=== PATIENT | male | born 1985 | race Caucasian/White ===

== ENCOUNTER 2017-04-11 12:37 | Emergency (ER) | payer OTHER ==
[~2017-04-11] VITALS: Ht 175.3 cm; Wt 72.0 kg
[2017-04-11 12:42] VITALS: BP 133/73
[2017-04-11] MEDS ORDERED: KEFLEX250 M1 PO (13:01)
--- NOTE | 2017-04-11 13:01 | ED SKIN/ALLERGY COMPLAINT ---
History of Present Illness General Chief Complaint: Skin Rash/ Abcess Stated Complaint: NECK RASH Source: patient, family Exam Limitations: no limitations Vital Signs & Intake/Output Vital Signs & Intake/Output Vital Signs Date Time Temp Pulse Resp B/P B/P Pulse O2 O2 Flow FiO2 Mean Ox Delivery Rate 04/11 1242 97.9 57 16 133/73 98 Room Air Allergies Coded Allergies: No Known Allergies (11/08/16) Reconcile Medications No Known Home Medications Triage Note: PT HAS RASH TO NECK AND THE BACK OF HIS HEAD THAT STARTED 3 DAYS AGO. Triage Nurses Notes Reviewed? yes HPI: 3 days ago patient noticed painful small bumps on the top of his head. This morning he woke up and noticed that he had to swollen areas on the back of his neck. There are no fevers or chills. There is no difficulty breathing or swallowing. There is no pain to the bumps to the back of his neck. There is no pain without palpation to the bumps on his head but there is tenderness when he presses on the area. There is no tenderness outside of the area. With palpation the tenderness is 4 out of 10. Past History Travel History Traveled to [place] past 21 day No Medical History Any Pertinent Medical History? 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 No Review of Systems Review of Systems Constitutional: Reports: no symptoms. EENTM: Reports: see HPI. Respiratory: Reports: no symptoms. Cardiovascular: Reports: no symptoms. GI: Reports: no symptoms. Skin: Reports: see HPI. Immunologic/Allergic: Reports: no symptoms. Physical Exam Physical Exam General Appearance: well developed/nourished, alert, awake, anxious, mild distress Head: SMALL PUTULES TO RIGHT POSTERIOR SCALP Eyes: Bilateral: PERRL, EOMI. Neck: [address] IN RIGHT POSTERIOR CHAIN, NONTENDER, MOVABLE. Respiratory: normal breath sounds, chest non-tender, no respiratory distress, lungs clear Cardiovascular: regular rate/rhythm, normal peripheral pulses Neurologic/Psych: no motor/sensory deficits, awake, alert, oriented x 3, normal gait, normal mood/affect Skin: SEE ABOVE Progress Differential Diagnosis: abscess/cellulitis Plan of Care: ABX Departure Departure Disposition: HOME OR SELF CARE Condition: Stable Clinical Impression Primary Impression: Abscess Secondary Impressions: Lymphadenitis Referrals: PATIENT HAS NO PRIMARY CARE DR (PCP/Family) Additional Instructions: TAKE ANTIBIOTICS PRESCRIBED RETURN IF SYMPTOMS WORSEN OR FOR ANY CONCERNS Departure Forms: Customer Survey General Discharge Information Prescriptions: Current Visit Scripts Cephalexin (Keflex) 1 CAP PO 4 TIMES/DAY #28 CAP
== END 2017-04-11 13:06 ==
LOC: ERH 12:37
DX: L02.91 Cutaneous abscess, unspecified (principal); I88.9 Nonspecific lymphadenitis, unspecified

== ENCOUNTER 2017-04-26 17:22 | Emergency (ER) | payer OTHER ==
[~2017-04-26] VITALS: Ht 175.3 cm; Wt 74.0 kg
[~2017-04-26 17:22] MED LIST: KEFLEX250 M1 PO
--- NOTE | 2017-04-26 18:22 | RADIOLOGY REPORT ---
EXAMINATION: XR CHEST CLINICAL INFORMATION: Right-sided chest pain COMPARISON: None TECHNIQUE: 2 views of the chest were obtained. FINDINGS: No significant abnormality is noted involving the heart, lungs, mediastinum, bony thorax or soft tissues. IMPRESSION: Unremarkable examination.
--- NOTE | 2017-04-26 18:50 | ED DYSPNEA/ASTHMA COMPLAINT ---
History of Present Illness General Chief Complaint: General Adult Stated Complaint: COUGH, RIGHT CHEST PAIN Source: family Exam Limitations: language barrier Vital Signs & Intake/Output Vital Signs & Intake/Output Vital Signs Date Time Temp Pulse Resp B/P B/P Pulse O2 O2 Flow FiO2 Mean Ox Delivery Rate 04/26 1924 97.5 66 20 128/78 98 Room Air 04/26 1846 Room Air 04/26 1742 97.6 67 20 138/75 99 Room Air Allergies Coded Allergies: No Known Allergies (11/08/16) Reconcile Medications Benzonatate (Tessalon Perle) 100 MG CAPSULE 1 CAP PO TID PRN COUGH Cephalexin (Keflex) 250 MG CAPSULE 1 CAP PO 4 TIMES/DAY ABSCESS Codeine Phosphate/Guaifenesi (Cheratussin AC Syrup) 10 MG-100 MG/5 ML LIQUID 10 ML PO QPM PRN COUGH 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 (Medrol) 4 MG TAB.DS.PK 1 DP PO AD inflammation 6 on day 1 then reduce by one tablet daily until gone Triage Note: PT TO ED C/O RIGHT SIDED CHEST PAIN WITH COUGHING. HAD FEVER 2 DAYS AGO AND STATES THE PAIN STARTED AFTER THE FEVER. C/O NON-PRODUCTIVE COUGH. AFEBRILE NOW. PT IS [place] SPEAKING, FRIEND HERE TO TRANSLATE. PT TO EKG BILLIE. Triage Nurses Notes Reviewed? yes Onset: Gradual Duration: constant Timing: recent history Severity: moderate HPI: Patient is a 31-year-old male with an unremarkable past medical history since emergent with a 2 day history of tactile fevers and nonproductive cough and pleuritic chest pain and back pain upon multiple episodes of coughing. Patient denies any shortness of breath neck pain neck stiffness chest pain and arm pain jaw pain nausea vomiting leg swelling hemoptysis wheezing palpitations. Denies any similar sick contacts at home. Patient is a former smoker Past History Travel History Traveled to [place] past 21 day No Medical History Any Pertinent Medical History? 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 No Review of Systems Review of Systems Constitutional: Reports: see HPI, fever. Denies: chills. EENTM: Reports: no symptoms. Respiratory: Reports: see HPI, cough. Denies: hemoptysis, short of breath, sputum production , stridor. Cardiovascular: Reports: no symptoms. GI: Reports: no symptoms. Genitourinary: Reports: no symptoms. Musculoskeletal: Reports: no symptoms. Skin: Reports: no symptoms. Neurological/Psychological: Reports: no symptoms. Hematologic/Endocrine: Reports: no symptoms. Immunologic/Allergic: Reports: no symptoms. All Other Systems: Reviewed and Negative Physical Exam Physical Exam General Appearance: no apparent distress, alert, comfortable Respiratory: normal breath sounds, chest non-tender, no respiratory distress Comments: Well-developed well-nourished person in no acute distress HEENT: Normal EENT exam Neck: Supple, no lymphadenopathy, normal range of motion without pain or tenderness Back: Nontender, no CVA tenderness. Cardiovascular: Regular rate and rhythms no murmurs rubs or gallops, normal JVP Respiratory: Chest nontender. No respiratory distress.breath sounds clear to auscultation bilaterally Abdomen: Soft, nontender nondistended, no appreciable organomegaly. Normal bowel sounds. No ascites Extremity: No edema, no calf tenderness to palpation, normal and equal pulses. Neuro: Alert oriented x3, motor sensory normal, Skin: No appreciable rash on exposed skin, skin is warm and dry. Psych: Mood and affect is normal, memory and judgment is normal. Core Measures ACS in differential dx? No Severe Sepsis Present: No Septic Shock Present: No Progress Differential Diagnosis: asthma, AMI, bronchitis, costochondritis, CHF, COPD, musculoskeletal pain, pericarditis, pulmonary embolism, pneumonia, pneumothorax, rib fracture, unstable angina Plan of Care: Orders Procedure Date/time Status EKG 04/26 3965 Active Patient was afebrile nontoxic-appearing EENT exam was unremarkable clear lungs auscultation. Upon discharge patient looks well no apparent distress and will comply with discharge INSTRUCTIONS and had no questions (TARA HECK,GLEN) Diagnostic Imaging: Viewed by Me: Radiology Read. CXR Impression: no acute abnormality, no infiltrates Initial ED EKG: normal p-waves, normal QRS complex, normal sinus rhythm, NSR 63 BPM Comments: PATIENT: JACLYN ISLAS RECORD NO: [id number] PRESENT AGE: 31 PATIENT ACCOUNT NO: [id number] : 85 LOCATION: [facility] ORDERING PHYSICIAN: IVONNE KAPLAN DO (TBS) SERVICE DATE: 04/26/17 EXAM TYPE: RAD - XRY-CHEST XRAY, PA AND LATERAL EXAMINATION: XR CHEST CLINICAL INFORMATION: Right-sided chest pain COMPARISON: None TECHNIQUE: 2 views of the chest were obtained. FINDINGS: No significant abnormality is noted involving the heart, lungs, mediastinum, bony thorax or soft tissues. IMPRESSION: Unremarkable examination. DICTATED BY: ASHLEY AHUJA MD DATE/TIME DICTATED:04/26/171816 SQL DATABASE ADMINISTRATOR:SUNDEEP Departure Departure Disposition: HOME OR SELF CARE Condition: Stable Clinical Impression Primary Impression: Bronchitis Referrals: CANDIDA KIM (PCP/Family) Additional Instructions: As discussed begin the prescription of Medrol Dosepak for inflammation and begin a prescription for Tessalon Perles and Cheratussin for cough. Prescriptions waiting a [facility] pharmacy. If no better in 3 days follow-up with primary care doctor. If symptoms worsen return to emergency room Begin [id number] ibuprofen for pain and inflammation Departure Forms: Customer Survey General Discharge Information Prescriptions: Current Visit Scripts Methylprednisolone. 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
[2017-04-26] MEDS ORDERED: TESSALON PERLE100 M1 PO (19:11)
[2017-04-26] MEDS ORDERED: CHERATUSSIN AC118 M1 PO (19:11)
[2017-04-26] MEDS ORDERED: MEDROL4 M2 PO (19:11)
[2017-04-26 19:24] VITALS: BP 128/78
== END 2017-04-26 19:25 ==
LOC: ERH 17:22
DX: J40 Bronchitis, not specified as acute or chronic (principal); R07.89 Other chest pain
CPT/HCPCS: 93005; 93010